=== PATIENT | female | born 1950 | race Caucasian/White ===

== ENCOUNTER → 2020-05-05 10:27 | Outpatient (BNVA) | payer MEDICARE, OTHER, SELFPAY | PROVIDERS: Family Provider Family Medicine; PCP Family Medicine; Referring Provider Nurse Practitioner Family; Visit Provider Dermatology | DX: L43.9 Lichen planus, unspecified (principal); I83.90 Asymptomatic varicose veins of unspecified lower extremity | CPT/HCPCS: 99203 ==

== ENCOUNTER 2022-10-01 10:40 | Emergency (ER) | payer MEDICARE, OTHER, SELFPAY ==
[2022-10-01 10:47] VITALS: BP 166/93; PULSE 70; RESP 16; TEMP 36.5; O2SAT 97
--- NOTE | 2022-10-01 11:05 | CTR_ITS ---
PROCEDURE INFORMATION: Exam: CT Head Without Contrast Exam date and time: 10/01/2022 11:31 AM Age: 72 years old Clinical indication: Syncope and collapse; Patient HX: PT CO possibly two syncopical episodes at home unwitnessed. PT has lac to anterior nose that is controlled upon arrivail; Additional info: Syncope, head injury TECHNIQUE: Imaging protocol: Computed tomography of the head without contrast. Radiation optimization: All CT scans at this facility use at least one of these dose optimization techniques: automated exposure control; mA and/or kV adjustment per patient size (includes targeted exams where dose is matched to clinical indication); or iterative reconstruction. COMPARISON: CT head wo con* [id number] 03/09/2019 3:08 PM RADIATION DOSE METRICS: Total DLP (mGy-cm): 1132.18 FINDINGS: Brain: No intracranial hemorrhage. No mass effect, edema or midline shift. Cortical sulci are unremarkable for age. There are diffuse vague areas of decreased attenuation within the periventricular white matter likely secondary to chronic microvascular changes. Incidental physiological calcifications both basal ganglia, unchanged. Cerebral ventricles: No ventriculomegaly. Paranasal sinuses: Visualized sinuses are unremarkable. No fluid levels. Mastoid air cells: Visualized mastoid air cells are well aerated. Bones/joints: Unremarkable. No acute fracture. Soft tissues: Unremarkable. CT/CT head wo con* [id number] IMPRESSION: No acute intracranial abnormality. Diffuse, chronic white matter microvascular changes.
--- NOTE | 2022-10-01 11:05 | XRR_ITS ---
PROCEDURE INFORMATION: Exam: XR Left Knee Exam date and time: 10/01/2022 11:10 AM Age: 72 years old Clinical indication: Injury or trauma; Fall; Blunt trauma; Knee; Left TECHNIQUE: Imaging protocol: Radiologic exam of the Left knee. Views: 3 views. COMPARISON: No relevant prior studies available. FINDINGS: Bones/joints: There is mild degenerative joint space narrowing of the mediolateral knee compartments. Anterior tibial tuberosity is ununited, longstanding, possibly secondary to old Ely-Schlatter's disease. There is no fracture, dislocation or malalignment. Soft tissues: Unremarkable. XR/XR knee LT 3V* [id number] IMPRESSION: No acute bony abnormalities.
--- NOTE | 2022-10-01 11:13 | ECG_ITS ---
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 Measurements Intervals [place] Rate: 72 P: 39 WV: 141 QRS: 17 QRSD: 113 T: 4 QT: 396 QTc: 434 Interpretive Statements SINUS RHYTHM LOW QRS VOLTAGE IN PRECORDIAL LEADS [QRS DEFLECTION < 1.0 mV IN CHEST LEADS] RIGHT BUNDLE BRANCH BLOCK [120+ ms QRS DURATION, UPRIGHT V1, 40+ ms S IN I/aVL/V4/V5/V6] Compared to ECG 03/09/2019 15:01:39 Low QRS voltage now present Right bundle-branch block now present ST (T wave) deviation no longer present Electronically Signed On 10-01-2022 16:03:23 BAR POINTER by Guerrero Restrepo M.D. [id number]
[2022-10-01] MEDS: tetanus-dipt-pertussis 0.5 mL SDV IM (11:50)
[2022-10-01 11:57] LABS: Basophils # 0.1 10^3/uL (0.0-0.1); Basophils % 0.8 %; Eosinophils # 0.1 10^3/uL (0.0-0.8); Eosinophils % 0.8 %; Hematocrit 44.6 % (37.0-47.0); Lymphocytes # 3.1 10^3/uL (0.8-4.8); Lymphocytes % 25.9 %; Mean Corpuscular HGB Conc 33.6 g/dL (30.0-36.0); Mean Corpuscular Hemoglobin 29.5 pg (28.0-34.0); Mean Corpuscular Volume 87.8 fl (81-99); Mean Platelet Volume 9.9 fL (7.4-10.4); Monocytes # 0.9 10^3/uL (0.2-0.9); Monocytes % 7.3 %; Neutrophils # 7.69 10^3/uL (1.8-7.7); Neutrophils % 64.9 %; Nucleated Red Blood Cells % 0 %; Platelet Count 335 10^3/cmm (130-400); Red Blood Count 5.08 10^6/uL (4.1-5.3); Red Cell Distribution Width 11.9 % (12.1-15.1); White Blood Count 11.8 10^3/uL (4.0-10.0)
[2022-10-01 12:04] VITALS: BP 152/90; PULSE 66; O2SAT 96
[2022-10-01] MEDS: ketorolac 30 mg/mL INJ 15 MG IVP (12:04)
[2022-10-01 12:17] LABS: Alanine Aminotransferase 25 U/L (0-33); Albumin Level 4.6 g/dL (3.5-5.2); Alkaline Phosphatase 96 U/L (35-105); Aspartate Amino Transferase 21 U/L (0-32); Blood Urea Nitrogen 17 mg/dL (8-23); Calcium 10.4 mg/dL (8.5-10.5); Carbon Dioxide 24 mmol/L (22-29); Chloride 100 mmol/L (98-107); Globulin 3.2 g/dL (1.3-4.6); Glomerular Filtration Rate 70.9 mL/min (90-130); Glucose 122 mg/dL (65-115); Magnesium 2.2 mg/dL (1.7-2.3); Osmolality Calculated 283 mOsm/kg (285-295); Sodium 135 mmol/L (136-145); Total Bilirubin 0.7 mg/dL (0.15-1.2); Total Protein 7.8 g/dL (6.6-8.7)
[2022-10-01 12:18] LABS: Troponin(5th) Baseline 6 ng/L (0-10)
--- NOTE | 2022-10-01 12:21 | W.ED.SYNCOPE ---
HPI - Syncope General: Chief Complaint: Syncope Stated Complaint: Passed out, Fall, hit head Time Seen by Provider: 10/01/22 11:00 History of Present Illness: 72-year-old female presents following a syncope event. Patient reports that she took a hydrocodone amoxicillin yesterday because she had his teeth pulled earlier in the week that she just got a little dizzy and had what she calls a brief syncope event. This happened last night. She was little bit confused after it happened. Patient reports that she had a little bit of what she felt like a memory issue after it. She denies any chest pain prior shortness of breath. She reports this morning she is feeling fine. Outside of some mild knee pain from where she hit her knee when she fell. She reports that she came in last night but did not want to wait in the waiting room so they went home and returned today. Associated symptoms: Deny abdominal pain, chest pain, fever(s), headache(s) or nausea Review of Systems Const: Denies: fever(s) or chills Eyes: Reports: eye discomfort; Denies: change in vision or blurry vision ENMT: Reports: other (abrasion bridge nose ) Card: Reports: syncope; Denies: chest pain or palpitations Resp: Denies: dyspnea or productive cough GI: Denies: abdominal pain, nausea or vomiting : Denies: flank pain or difficulty voiding Musc: Denies: neck pain Skin/Breast: Denies: rash Neuro: Denies: headache(s) or dizziness PFS ED PFSH: Family History Other Diabetes Family history of premature coronary artery disease Social History Smoking and tobacco status: never smoked Alcohol intake: never History of recent travel: No Physical Exam Const: COMMON NORMALS: no acute distress, patient oriented x3, no limitations and alert HENMT: NOSE: Abnormal external nose present nasal laceration and nasal abrasion Eye: COMMON NORMALS: Equal, round and reactive pupils present and EOMs intact bilaterally PUPIL: Yes Equal, round and reactive pupils present Resp: COMMON NORMALS: normal respiratory effort, No use of accessory muscles and clear to auscultation bilaterally AUSCULTATION: clear to auscultation bilaterally Cardio: COMMON NORMALS: regular rate and regular rhythm RATE: regular rate RHYTHM: regular rhythm GI: COMMON NORMALS: Soft to palpation and non-tender PALPATION: Yes Soft to palpation Extremity: COMMON NORMALS: normal to inspection and capillary refill normal LEFT LOWER EXTREMITY: Yes knee joint (Mild tenderness distal knee, no deformity or abnormality noted) Neuro: COMMON NORMALS: patient oriented x3, moves all extremities, no focal motor deficits and no sensory deficits noted SENSORIUM/ORIENTATION: Yes alert Psych: COMMON NORMALS: mental status grossly normal, cooperative and normal affect Skin: OTHER: steri strip over small lac, abrasion bridge of nose Course Vital Signs: Vital signs: Vital Signs Temperature 97.7 F 10/01/22 10:47 Pulse Rate 66 10/01/22 12:04 Respiratory Rate 16 10/01/22 10:47 Blood Pressure 152/90 10/01/22 12:04 Pulse Oximetry 96 10/01/22 12:04 Oxygen Delivery Me thod 10/01/22 12:04 MDM - Syncope Medical Decision Making Patient's labs were reviewed she has a very minimal elevated white count. Patient x-ray of her knee shows no acute findings. Patient's head CT shows no findings. I suspect it was medication induced causing her syncope. Patient likely has some mild concussive symptoms following a fall and hit her head. Discussed supportive care and follow-up with her primary care provider. She is stable discharged home Lab Data 10/01/22 11:46 10/01/22 11:[address] 10/01/22 11:05 IMPRESSION: No acute intracranial abnormality. Diffuse, chronic white matter microvascular changes. Knee X-Ray 10/01/22 11:05 IMPRESSION: No acute bony abnormalities. Laboratory Results WBC 11.8 10^3/uL (4.0-10.0) H 10/01/22 11:46 RBC 5.08 10^6/uL (4.1-5.3) 10/01/22 11:46 Hgb 15.0 g/dL (11.5-15.3) 10/01/22 11:46 Hct 44.6 % (37.0-47.0) 10/01/22 11:46 MCV 87.8 fl (81-99) 10/01/22 11:46 MCH 29.5 pg (28.0-34.0) 10/01/22 11:46 MCHC 33.6 g/dL (30.0-36.0) 10/01/22 11:46 RDW 11.9 % (12.1-15.1) L 10/01/22 11:46 Plt Count 335 10^3/cmm (130-400) 10/01/22 11:46 MPV 9.9 fL (7.4-10.4) 10/01/22 11:46 Neut % (Auto) 64.9 % 10/01/22 11:46 Lymph % (Auto) 25.9 % 10/01/22 11:46 Forest % (Auto) 7.3 % 10/01/22 11:46 Eos % (Auto) 0.8 % 10/01/22 11:46 Baso % (Auto) 0.8 % 10/01/22 11:46 Neut # (Auto) 7.69 10^3/uL (1.8-7.7) 10/01/22 11:46 Lymph # (Auto) 3.1 10^3/uL (0.8-4.8) 10/01/22 11:46 Forest # (Auto) 0.9 10^3/uL (0.2-0.9) 10/01/22 11:46 Eos # (Auto) 0.1 10^3/uL (0.0-0.8) 10/01/22 11:46 Baso # (Auto) 0.1 10^3/uL (0.0-0.1) 10/01/22 11:46 Nucleated RBC % (auto) 0 % 10/01/22 11:46 Nucleated RBCs # 0.0 /100WBC 10/01/22 11:46 Sodium 135 mmol/L (136-145) L 10/01/22 11:46 Potassium 4.0 mmol/L (3.5-5.1) 10/01/22 11:46 Chloride 100 mmol/L (98-107) 10/01/22 11:46 Carbon Dioxide 24 mmol/L (22-29) 10/01/22 11:46 Anion Gap 15.0 (5-19) 10/01/22 11:46 BUN 17 mg/dL (8-23) 10/01/22 11:46 Creatinine 0.8 mg/dL (0.5-0.9) 10/01/22 11:46 GFR Calculation 70.9 mL/min (90-130) L 10/01/22 11:46 Glucose 122 mg/dL (65-115) H 10/01/22 11:46 Calculated Osmolality 283 mOsm/kg (285-295) L 10/01/22 11:46 Calcium 10.4 mg/dL (8.5-10.5) 10/01/22 11:46 Magnesium 2.2 mg/dL (1.7-2.3) 10/01/22 11:46 Total Bilirubin 0.7 mg/dL (0.15-1.2) 10/01/22 11:46 AST 21 U/L (0-32) 10/01/22 11:46 ALT 25 U/L (0-33) 10/01/22 11:46 Alkaline Phosphatase 96 U/L (35-105) 10/01/22 11:46 Troponin T Baseline 6 ng/L (0-10) 10/01/22 11:46 Total Protein 7.8 g/dL (6.6-8.7) 10/01/22 11:46 Albumin 4.6 g/dL (3.5-5.2) 10/01/22 11:46 Globulin 3.2 g/dL (1.3-4.6) 10/01/22 11:46 Discharge Plan Discharge Patient Disposition: Home Clinical Impression: Syncope and collapse, Minor closed head injury, Concussion, Contusion of knee, left Condition: Stable Prescriptions: No Action levothyroxine [Synthroid] 50 mcg tablet 50 mcg PO DAILY betamethasone dipropionate 0.05 % ointment 1 applic TOPICAL BID Qty: 45 2RF Rx Instructions: Apply thin film to affected areas on lower extremities twice daily x3 weeks Discharge Orders: Discharge ED (Routine); Ordered 10/01/22 Ordered By: Quoc Crawford Referrals: Jono Barton MD [Primary Care Provider] - Discharge Diet: Advance as tolerated Discharge Activity: Resume usual activity Patient Instructions: Concussion/Head Injury - Adult, Syncope (DC), Opioid Safety, Pain Management Activity Restrictions/Additional Instructions: Please follow-up with your primary care provider towards the end of the week for recheck of your symptoms. Sooner if worsening of symptoms or any other concerns. Coding Level of Care Code ED Roller Skate As[employer]er for Chg Fwd Exam Comprehensive
== END 2022-10-01 13:00 | disposition home or self-care (01) ==
PROVIDERS: Emergency Provider Student in an Organized Health Care Education/Training Program; PCP Family Medicine
DX: R55 Syncope and collapse (principal); S09.8XXA Other specified injuries of head, initial encounter; S06.0XAA Concussion with loss of consciousness status unknown, initial encounter; S80.02XA Contusion of left knee, initial encounter; W18.39XA Other fall on same level, initial encounter; Z23 Encounter for immunization
CPT/HCPCS: 70450; 73562; 80053; 83735; 84484; 85025; 90715; 93005; 96374; 99285; J1885

== ENCOUNTER → 2022-10-14 14:56 | Outpatient (BNVA) | payer MEDICARE, OTHER, SELFPAY | PROVIDERS: PCP Family Medicine; Visit Provider Emergency Medicine | DX: S99.912A Unspecified injury of left ankle, initial encounter (principal); X58.XXXA Exposure to other specified factors, initial encounter; M77.32 Calcaneal spur, left foot | CPT/HCPCS: 73610 ==

== ENCOUNTER → 2023-03-01 12:27 | Outpatient (BNVA) | payer MEDICARE, OTHER, SELFPAY | PROVIDERS: PCP Family Medicine; Visit Provider Specialist | DX: M79.675 Pain in left toe(s); M79.672 Pain in left foot; M79.605 Pain in left leg | CPT/HCPCS: 95908; 95909 ==

== ENCOUNTER → 2023-11-01 09:51 | Outpatient (BNVA) | payer MEDICARE, OTHER, SELFPAY | PROVIDERS: PCP Family Medicine; Visit Provider Nurse Practitioner Family | DX: L57.0 Actinic keratosis; L81.4 Other melanin hyperpigmentation; D22.5 Melanocytic nevi of trunk; L57.8 Other skin changes due to chronic exposure to nonionizing radiation; L82.1 Other seborrheic keratosis | CPT/HCPCS: 17000; 99203 ==

== ENCOUNTER → 2024-11-17 09:11 | Outpatient (BNVA) | payer MEDICARE, OTHER, SELFPAY | PROVIDERS: PCP Family Medicine; Visit Provider Podiatrist Foot & Ankle Surgery | DX: M79.672 Pain in left foot (principal); M20.22 Hallux rigidus, left foot | CPT/HCPCS: 73630; 99203 ==